=== PATIENT | female | born 1970 | race African-American/Black ===

== ENCOUNTER → 2023-09-21 16:14 | Outpatient (REF) | payer OTHER, SELFPAY ==
[2023-09-21 20:06] LABS: Rubella Positive
== END ==
LOC: OHS 16:14
PROVIDERS: ATTENDING PHYSICIAN Nurse Practitioner Family
DX: Z23 Encounter for immunization (principal)
CPT/HCPCS: 36415; 86735; 86762; 86765; 86787

== ENCOUNTER → 2023-10-21 10:40 | Outpatient (REF) | payer OTHER, SELFPAY ==
[2023-10-23 09:13] LABS: Quantiferon Mitogen minus NIL 9.98 IU/mL; Quantiferon NIL 0.02 IU/mL; Quantiferon TB Gold Plus Negative (Negative)
== END ==
LOC: OHS 10:40
PROVIDERS: ATTENDING PHYSICIAN Nurse Practitioner Family
DX: Z23 Encounter for immunization (principal)
CPT/HCPCS: 36415; 86480